=== PATIENT | female | born 1980 | race Caucasian/White ===

== ENCOUNTER 2018-06-13 08:19 | Emergency (ER) | payer OTHER ==
[2018-06-13 08:30] VITALS: Ht 167.6 cm
[2018-06-13 09:18] VITALS: BP 138/96
== END 2018-06-13 11:16 | disposition home or self-care (01) ==
LOC: ED 08:19
DX: H60.91 Unspecified otitis externa, right ear (principal)

== ENCOUNTER 2018-12-15 08:27 | Emergency (ER) | payer OTHER ==
[~2018-12-15] VITALS: Ht 165.1 cm; Wt 101.8 kg
[2018-12-15 08:51] VITALS: BP 141/97
[2018-12-15 09:35] LABS: BASOPHIL % 0.3 % (0-2); PLATELET COUNT 286 x10^3mcL (130-400)
[2018-12-15 09:36] LABS: CALCIUM 8.6 mg/dL (8.5-10.1); CARBON DIOXIDE 28.4 mmol/L (21-32); CHLORIDE SERUM 105 mmol/L (98-107); CREATININE SERUM 0.8 mg/dL (0.6-1.0); GFR1 > 60 mL/min; GLUCOSE SERUM 108 mg/dL (74-106); POTASSIUM SERUM 3.7 mmol/L (3.5-5.1); SODIUM SERUM 141 mmol/L (136-145)
[2018-12-15 09:40] LABS: ALBUMIN 3.7 g/dL (3.4-5.0); ALKALINE PHOSPHATASE 89 U/L (46-116); ALT/SGPT 25 U/L (14-59); AST/SGOT 12 U/L (15-37); BILIRUBIN TOTAL 0.43 mg/dL (0.20-1.00); LIPASE 110 IU/L (73-393); RED CELL DISTRIBUTION WIDTH 14.6 % (11.5-14.5); TOTAL PROTEIN, SERUM 7.5 g/dL (6.4-8.2)
[2018-12-15 10:50] LABS: microscopic required? YES; urine erythrocyte TRACE (NEGATIVE)
== END 2018-12-15 11:01 | disposition home or self-care (01) ==
LOC: ED 08:27
PROVIDERS: Emergency Medicine
DX: R10.33 Periumbilical pain (principal); R11.0 Nausea; R51 Headache; R14.0 Abdominal distension (gaseous)
CPT/HCPCS: 36415

== ENCOUNTER 2019-05-14 12:49 | Emergency (ER) | payer OTHER ==
[~2019-05-14] VITALS: Ht 165.1 cm; Wt 93.4 kg
[2019-05-14 12:51] VITALS: Ht 165.1 cm; Wt 93.4 kg
[2019-05-14 13:12] LABS: microscopic required? NO
[2019-05-14 13:53] LABS: UA SPECIFIC GRAVITY 1.025 (1.005-1.035); urine erythrocyte NEGATIVE (NEGATIVE)
[2019-05-14 14:48] LABS: BASOPHIL % 0.4 % (0-2); PLATELET COUNT 294 x10^3mcL (130-400); RED CELL DISTRIBUTION WIDTH 14.1 % (11.5-14.5)
[2019-05-14 14:55] LABS: CALCIUM 8.3 mg/dL (8.5-10.1); CARBON DIOXIDE 29.8 mmol/L (21-32); CHLORIDE SERUM 108 mmol/L (98-107); CREATININE SERUM 0.9 mg/dL (0.6-1.0); GFR1 > 60 mL/min; GLUCOSE SERUM 84 mg/dL (74-106); POTASSIUM SERUM 3.8 mmol/L (3.5-5.1); SODIUM SERUM 143 mmol/L (136-145)
[2019-05-14 15:00] LABS: ALBUMIN 3.2 g/dL (3.4-5.0); ALKALINE PHOSPHATASE 90 U/L (46-116); ALT/SGPT 18 U/L (14-59); AST/SGOT 14 U/L (15-37); BILIRUBIN TOTAL 0.4 mg/dL (0.20-1.00); LIPASE 91 IU/L (73-393); TOTAL PROTEIN, SERUM 7.1 g/dL (6.4-8.2)
[2019-05-14 16:47] VITALS: BP 134/62
== END 2019-05-14 16:47 | disposition home or self-care (01) ==
LOC: ED 12:49
PROVIDERS: Emergency Medicine
DX: K80.20 Calculus of gallbladder without cholecystitis without obstruction (principal); N94.10 Unspecified dyspareunia
CPT/HCPCS: 36415; 87491; 87591

== ENCOUNTER 2019-07-28 22:32 | Emergency (ER) | payer OTHER ==
[~2019-07-28] VITALS: Ht 165.1 cm; Wt 95.3 kg
[2019-07-28 22:35] VITALS: Ht 165.1 cm; Wt 95.3 kg
[2019-07-29 02:03] VITALS: BP 139/96
== END 2019-07-29 02:03 | disposition home or self-care (01) ==
LOC: ED 22:32
DX: S09.8XXA Other specified injuries of head, initial encounter (principal); W20.8XXA Other cause of strike by thrown, projected or falling object, initial encounter; Y93.89 Activity, other specified; Y92.89 Other specified places as the place of occurrence of the external cause; Y99.8 Other external cause status

== ENCOUNTER 2019-08-06 15:58 | Emergency (ER) | payer OTHER ==
[~2019-08-06] VITALS: Ht 165.1 cm; Wt 90.7 kg
[2019-08-06 16:11] VITALS: Ht 165.1 cm; Wt 90.7 kg
[2019-08-06 18:32] VITALS: BP 139/77
== END 2019-08-06 18:36 | disposition home or self-care (01) ==
LOC: ED 15:58
DX: G44.209 Tension-type headache, unspecified, not intractable (principal); F41.9 Anxiety disorder, unspecified
CPT/HCPCS: J1885

== ENCOUNTER 2019-10-14 12:50 | Emergency (ER) | payer OTHER ==
[~2019-10-14] VITALS: Ht 165.1 cm; Wt 98.4 kg
[2019-10-14 13:01] VITALS: Ht 165.1 cm; Wt 98.4 kg
[2019-10-14 15:21] VITALS: BP 156/81
== END 2019-10-14 15:21 | disposition home or self-care (01) ==
LOC: ED 12:50
DX: R51 Headache (principal); R03.0 Elevated blood-pressure reading, without diagnosis of hypertension; I10 Essential (primary) hypertension
CPT/HCPCS: J1885